=== PATIENT | female | born 1980 | race Caucasian/White ===

== ENCOUNTER 2017-07-05 01:55 | Inpatient (IN) ==
[2017-07-05 01:35] LABS: Basophils % 0.2 % (0.0-0.8); Hematocrit 40.1 VOL% (35.7-47.0); Hemoglobin 14.4 GM/DL (12.0-16.0); Immature Granulocytes % 0.5 %; Immature Granulocytes Absolute 0.09 #; Lymphocytes # 1.5 10*3/uL (1.4-4.0); Lymphocytes % 8.8 % (21.3-54.2); Mean Corpuscular HGB Conc 35.9 GM/DL (32-36); Mean Corpuscular Hemoglobin 31 PG (27-34); Mean Corpuscular Volume 86.2 FL (87-102); Monocytes # 0.7 10*3/uL (0.11-0.8); Neutrophils # 14.6 10*3/uL (1.4-7.4); Neutrophils % 86.5 % (38.7-73.9); Platelet Count 203 T/CUMM (130-400); Red Blood Count 4.65 MC/CUMM (3.8-5.5); Red Cell Distribution Width 12.4 % (9.3-17.3); White Blood Count 16.9 T/CUMM (4-12)
[2017-07-05 01:49] LABS: Apearance,Urine Slightly Hazy (Clear); Bacteria,Urine Occasional /HPF (Few); Bilirubin,Urine Negative (Negative); Blood, Urine Moderate mg/dL (Negative); Glucose,Urine (UA) Negative (Negative); Ketones,Urine 5 mg/dL (Negative); Mucus,Urine Moderate /LPF (Occasional); Nitrite,Urine Negative (Negative); Protein,Urine Negative; RBC,Urine 7 /HPF (0-4); Squamous Epithelial Cell,Urine Occasional /HPF (0-10); Urine Color Yellow (Yellow); Urine Specific Gravity 1.016 (1.001-1.035); WBC,Urine 10 /HPF (0-6)
[~2017-07-05 01:55] MED LIST: KETOROLAC 30 MG/1 ML VIAL IV STA; KETOROLAC 30 MG/1 ML VIAL ONE; ONDANSETRON 4 MG/2 ML VIAL IV STA; ONDANSETRON 4 MG/2 ML VIAL ONE; SODIUM CHLORIDE 0.9% 1,000 ML IV STA
[2017-07-05] MEDS ORDERED: CIPROFLOXACIN INJ 400 MG in PREMIX 1 EACH IV STA (01:56)
[2017-07-05] MEDS ORDERED: CIPROFLOXACIN 400 MG/200 ML PREMIX IV ONE (02:26)
[2017-07-05 02:30] LABS: Albumin 4.2 G/DL (3.4-5.0); Calcium 8.6 MG/DL (8.5-10.1); Potassium 3.6 MMOL/L (3.5-5.1); Total Protein 7.8 G/DL (6.4-8.3)
[2017-07-05 02:36] LABS: Barbiturates Screen,Urine Negative (Negative); Benzodiazepines Screen,Urine Negative (Negative); Cannabinoid Screen,Urine Negative (Negative); Opiate Screen,Urine Negative (Negative); Phencyclidine Screen,Urine Negative (Negative)
[2017-07-05] MEDS ORDERED: HYDROmorphone 2 MG/1 ML VIAL ONE ×2 (03:38→04:22)
[2017-07-05] MEDS ORDERED: PROMETHAZINE 25 MG/1 ML VIAL ONE (03:38)
[2017-07-05] MEDS ORDERED: HYDROmorphone 2 MG/1 ML VIAL IV STA (04:20)
[2017-07-05] MEDS ORDERED: ONDANSETRON 4 MG/2 ML VIAL IV STA (04:20)
[2017-07-05] MEDS ORDERED: ONDANSETRON 4 MG/2 ML VIAL ONE ×2 (04:21→11:29)
[2017-07-05] MEDS ORDERED: ONDANSETRON 4 MG/2 ML VIAL IV PRN (04:23)
[2017-07-05] MEDS ORDERED: PIPERACILLIN/TAZOBACTAM 3,375 MG in SODIUM CHLORIDE 0.9% 100 ML IV STA (04:23)
[2017-07-05] MEDS ORDERED: SODIUM CHLORIDE 0.9% 100 ML IV ONE (04:27)
[2017-07-05] MEDS ORDERED: PIPERACILLIN/TAZOBACTAM 3,375 MG VIAL IV ONE (04:27)
[2017-07-05] MEDS ORDERED: NICOTINE 21 MG/24 HR PATCH TRANSDERM PRN (04:47)
[2017-07-05] MEDS ORDERED: BUPIVACAINE 0.25% 50 ML VIAL ONE (10:06)
[2017-07-05] MEDS ORDERED: LIDOCAINE 1%/EPI INJ 20 ML VIAL ONE (10:06)
[2017-07-05] MEDS: DEXTROSE 5% NACL 0.45% 1,000 ML IV SCH ×2 (11:13→21:38)
[2017-07-05] MEDS ORDERED: PROPOFOL 200 MG/20 ML VIAL IV ONE (11:28)
[2017-07-05] MEDS ORDERED: GLYCOPYRROLATE 0.4 MG/2 ML VIAL ONE (11:29)
[2017-07-05] MEDS ORDERED: ROCURONIUM 100 MG/10 ML VIAL IV ONE (11:29)
[2017-07-05] MEDS ORDERED: MIDAZOLAM 2 MG/2 ML VIAL ONE (11:29)
[2017-07-05] MEDS ORDERED: NEOSTIGMINE 10 MG/10 ML VIAL ONE (11:29)
[2017-07-05] MEDS ORDERED: SEVOFLURANE 1 UNIT/15 MINUTE INH ONE (11:29)
[2017-07-05] MEDS ORDERED: fentaNYL 100 MCG/2 ML VIAL ONE (11:29)
[2017-07-05] MEDS ORDERED: MEPERIDINE 25 MG/1 ML VIAL ONE (11:47)
[2017-07-05] MEDS ORDERED: MEPERIDINE 25 MG/1 ML VIAL IV PRN (11:50)
[2017-07-05] MEDS: HYDROmorphone 2 MG/1 ML VIAL IV PRN (14:44)
[2017-07-05] MEDS: PIPERACILLIN/TAZOBACTAM 3,375 MG in SODIUM CHLORIDE 0.9% 100 ML IV SCH ×2 (14:47→21:38)
[2017-07-06] MEDS: PIPERACILLIN/TAZOBACTAM 3,375 MG in SODIUM CHLORIDE 0.9% 100 ML IV SCH (04:34)
[2017-07-06] MEDS: HYDROmorphone 2 MG/1 ML VIAL IV PRN ×2 (04:40→11:14)
[2017-07-06] MEDS: DEXTROSE 5% NACL 0.45% 1,000 ML IV SCH (09:22)
[2017-07-06 11:04] VITALS: BP 94/59
== END 2017-07-06 13:40 | disposition home or self-care (01) | DRG 343 ==
LOC: N.ED 01:55 → N.EDINP 04:23 → N.3E 04:39
PROVIDERS: ADMIT Surgery; ATTEND Surgery